=== PATIENT | male | born 2000 | race Caucasian/White ===

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

== ENCOUNTER 2018-02-19 22:08 | Emergency (ER) | payer OTHER ==
[~2018-02-19] VITALS: Ht 177.8 cm; Wt 124.7 kg
[2018-02-19 22:09] VITALS: BP 182/86; PULSE 85; TEMP 36.9; O2SAT 98; Ht 177.8 cm; Wt 124.7 kg
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
[2018-02-19] MEDS ORDERED: ABL10 PO (23:42)
[2018-02-19] MEDS ORDERED: ESCI10TA17 PO (23:43)
[2018-02-19] MEDS ORDERED: GUAN1TAB23 PO (23:50)
[2018-02-19] MEDS ORDERED: AMPHETAMINE SALTS PO (23:52)
== END 2018-02-20 00:41 | disposition home or self-care (01) ==
LOC: C.EDB 22:09 → C.EDA 02-20 00:41
DX: F91.8 Other conduct disorders (principal); F31.30 Bipolar disorder, current episode depressed, mild or moderate severity, unspecified; F90.9 Attention-deficit hyperactivity disorder, unspecified type; Z83.3 Family history of diabetes mellitus; Z82.49 Family history of ischemic heart disease and other diseases of the circulatory system; Z84.1 Family history of disorders of kidney and ureter